=== PATIENT | female | born 1960 | race African-American/Black ===

== ENCOUNTER 2018-09-09 12:08 | Inpatient (IN) | payer OTHER ==
[~2018-09-09] VITALS: Ht 162.6 cm; Wt 94.3 kg
[2018-09-09 12:08] VITALS: BP 178/109
[~2018-09-09 12:08] MED LIST: ADVAIR HFA 1112 UNIT; ALEVE220 MG PO; CENTRUM SILVER1 EAC4 PO; COLACE 100 MG100 MG; GAVILAX17 GM; LEVAQUIN 500 M500 M6; MUCINEX TA600 MG/TA1; NICOTINE TRANSD21 M1; NOHOMEMEDICATIONS; NYSTATIN 1100000 U/M; PREDNISONE 20 M20 M1 PO; PROAIR HFA8.5 GM INH; SPIRIVA; SYMBICORT160 MCG/4. INH
[2018-09-09] MEDS ORDERED: CYCLOBENZAPRINE5 MG PO (12:19)
[2018-09-09] MEDS ORDERED: TRAMADOL HCL50 MG PO (12:20)
[2018-09-09] MEDS ORDERED: BREO ELLIPTA 11 EACH INH (12:20)
[2018-09-09 12:34] LABS: HEMATOCRIT 51.7 % (37.0-47.0); HEMOGLOBIN 17.6 gm/dL (12.0-15.0); MCH 33.2 pg (26.0-34.0); MCHC 34.1 g/dL (28.0-37.0); MCV 97.5 fL (80.0-100.0); PLATELET COUNT 198 thou/uL (150-400); RDW 12.9 % (10.5-14.5); WBC 10.3 thou/uL (4.0-11.0)
[2018-09-09 12:40] LABS: ANION GAP 8 mmol/L (7-16); BUN 15 mg/dL (7-18); CALCIUM 9.3 mg/dL (8.5-10.1); CHLORIDE 99 mmol/L (98-107); CO2 28 mmol/L (21-32); CREATININE 0.8 mg/dL (0.6-1.0); GLUCOSE 103 mg/dL (74-106); POTASSIUM 4.1 mmol/L (3.5-5.1); SODIUM 135 mmol/L (136-145)
[2018-09-09 12:49] LABS: ALBUMIN 3.9 g/dL (3.4-5.0); SGOT 20 U/L (15-37); SGPT 30 U/L (30-65); TOTAL BILIRUBIN 0.7 mg/dL (<0.1-1.0); TOTAL PROTEIN 8.2 g/dL (6.4-8.2); TROPONIN-I <0.06 ng/mL (<0.06)
[2018-09-09 12:59] VITALS: BP 151/96
[2018-09-09 13:00] LABS: ABSOLUTE NEUTROPHILS 7.8 thou/uL (1.4-8.2); ANISOCYTOSIS 1+; ATYPICAL LYMPHS 1 %; POLYCHROMASIA OCCASIONAL
--- NOTE | 2018-09-09 16:15 | NUR ---
PT ORIENTED TO ROOM AND UNIT. BED LOW AND LOCKED, SIDE RAILS UPX 3 CALL LIGHT IN REACH. WILL CONTINUE TO ASSESS.
[2018-09-09 16:36] VITALS: BP 97/49
[2018-09-09 16:50] VITALS: BP 101/69
--- NOTE | 2018-09-10 01:22 | EKG ---
[address] [place] [address] ELECTROCARDIOGRAM REPORT Name: JEFFERY FRANKLIN Room #: 358-P ADM IN M.R.#: [id number] ������������������ Admission: 09/09/18 ������������������ Attend Phys: Nitin Comer MD Discharge: ������������������ Date of : 58 Report #: [id number] ����������������������������������������������������������������� [id number] THIS REPORT FOR: //name// [facility] ED Test Date: 2018-09-09 Test Time: 12:20:48 Pat Name: JEFFERY FRANKLIN Department: Room: 358 Gender: F Slitting Machine Operator: DONAVAN : 1960 Requested By: Svetlana Reese Order Number: [id number] MD: Tyler Clifton Measurements Intervals [place] Rate: 110 P: 84 MT: 129 QRS: 75 QRSD: 81 T: 55 QT: 321 QTc: 435 Interpretive Statements Sinus tachycardia Biatrial enlargement Nonspecific ST-T wave changes Compared to ECG 08/31/2012 13:41:10 Electronically Signed On 09-10-2018 1:22:37 CDT by Tyler Clifton [email or web address] ��������������������������������������������� <ELECTRONICALLY SIGNED> ���������������������������������������� By: Tyler Clifton MD ��������������������������������������������� 09/10/18 0122 1220 1220 Tyler Clifton MD /JAMES
[2018-09-10 03:34] VITALS: BP 147/87
--- NOTE | 2018-09-10 07:28 | NUR ---
progress pt a/o x4 lungs coarse and tight on 2 to 4 liters of o2 via nc. up with sba. rt tx's and iv steroids and antibiotics given as ordered. pt voiding qs, accuchecks continue skin intact, tele reading sr continue poc.
[2018-09-10 07:55] VITALS: BP 113/101
[2018-09-10 08:38] LABS: MCH 33.1 pg (26.0-34.0); MCHC 33.8 g/dL (28.0-37.0); MCV 97.9 fL (80.0-100.0); RBC 4.7 mil/uL (4.20-5.00); RDW 13.1 % (10.5-14.5); WBC 8.6 thou/uL (4.0-11.0)
[2018-09-10 08:40] LABS: HEMOGLOBIN 15.5 gm/dL (12.0-15.0)
[2018-09-10 08:46] LABS: CALCIUM 8.9 mg/dL (8.5-10.1); CREATININE 0.9 mg/dL (0.6-1.0); POTASSIUM 4.2 mmol/L (3.5-5.1)
--- NOTE | 2018-09-10 10:52 | NUR ---
ASSUMED PT CARE AT 0700. ASSESSMENT COMPLETED AND IS CHARTED. PT B/P ELEVATED. STATES SHE TAKES LOSARTAN AT HOME. NEEDS TO BE ORDERED. WILL NOTIFY PHYSICIAN. PT REPORTS HEADACHE RATED 8/10. HYDROCODONE GIVEN. ALSO REQUESTS A STOOL SOFTENER TO PREVENT FUTURE PROBLEMS. NO OTHER ACUTE CONCERNS AT THIS TIME, WILL CONTINUE WITH CURRENT CARE.
--- NOTE | 2018-09-10 14:12 | NUR ---
ASSESSMENT: CM REVIEWED CHART AND MET WITH PATIENT AT THE BEDSIDE. PT IS ALERT AND ORIENTED X4. PT WAS ADMITTED WITH COPD EXACERBATION. PT REPORTS SHE LIVES IN A HOME BY HERSELF. PT REPORTS A COUPLE OF STEPS TO ENTER WITH NO HANDRAILS. PT REPORTS ONCE INSIDE SHE HAS ABOUT 14 STEPS WITH HANDRAILS TO THE UPPER LEVEL BUT REPORTS SHE MADE A BEDROOM ON THE FIRST FLOOR SO SHE DOES NOT HAVE TO GO UP THERE IF SHE DOES NOT WANT TO. PT REPORTS SHE AMBULATES INDEPENDENTLY BUT DOES HAVE A ROLLATER WALKER AT HOME IF NEEDED. PT STATES SHE HAS OXYGEN ARRANGED AT HOME FOR BEDTIME USE AND IS UNSURE OF THE PROVIDER. PT STATES SHE HAS NOT HAD HH IN THE PAST AND DOES NOT FEEL SHE WILL NEED IT. CM DISCUSSED ROLE. PT DOES NOT ANTICIPATE HAVING ANY NEEDS AT DISCHARGE. PTS DAUGHTER IS ALSO AT THE BEDSIDE AND SUPPORTIVE.
--- NOTE | 2018-09-10 15:11 | NUR ---
DISCONTINUED TELE. TRANSFERRED PT TO [facility] IN [facility]. REPORT CALLED TO CHILO.
[2018-09-10 15:37] VITALS: BP 113/70
--- NOTE | 2018-09-10 19:31 | NUR ---
PATIENT TRANSFERED FROM [facility], REPORT FROM JESUS/RN. PATIENT'S IV IN RIGHT HAND LEAKING UPON ARRIVAL TO THE UNIT, IV REMOVED, CALL IV TEAM FOR ASSISTANCE, DUE TO PATIENT BEING A HARD STICK, IV IN LEFT FOREARM 20G. PATIENT RECEIVING IV ANTIBIOTICS. PATIENT C/O HEADACHE, HYDROCODONE 1 TABLET GIVEN, WITH GOOD RELIEF. WILL CONTINUE TO MONITOR.
[2018-09-10 20:13] VITALS: BP 142/88
--- NOTE | 2018-09-11 06:07 | NUR ---
Pt A/OX4,pleasant.Up ad karolina without problems voiced. Pt did c/o a CASTELLANO medicated with [place] X1 with relief reported. Does have a congested non-productive cough,O2 on @ 3L/NC. VSS.Voiding without problems,stated she would like to have some prune juice w/breakfast to keep her bowels active while in the hospital.Resting quietly eyes closed at this time with no distress,call light within reach. Will continue to monitor pt.
[2018-09-11 08:16] VITALS: BP 132/78
--- NOTE | 2018-09-11 11:57 | NUR ---
PATIENT TRANSFERED FROM [facility], REPORT FROM JESUS/RN. PATIENT ALERT AND ORIENTED X 4. UP WITH ASSIST X 1 WITH WALKER, WBAT TOELRATED. PATIENT HAS DRESSING TO RIGHT KNEE, C/D/I, JESUS/RN REMOVED DRAIN PRIOR TO TRANSFER. PATIENT C/O PAIN 03/21. WORKED WITH PHYSICAL THERAPY THIS AM, WILL HAVE ANOTHER SESSION THIS AFTERNOON. PATIENT HAS LEFT HAND IV IN PLACE. WILL CONTINUE TO MONITOR.
--- NOTE | 2018-09-11 12:40 | NUR ---
SW reviewed chart and spoke with nursing and attending physician. Pt was [facility] to [facility] and is progressing towards goals for discharge. Pt remains on IV abx. Plan is for pt to discharge home when medically stable. OLESYA is following to assist as needed with discharge planning.
[2018-09-11 12:41] LABS: CALCIUM 8.7 mg/dL (8.5-10.1); CREATININE 0.7 mg/dL (0.6-1.0); POTASSIUM 4.2 mmol/L (3.5-5.1)
--- NOTE | 2018-09-11 19:37 | NUR ---
ASSUMED CARE OF PATIENT AT 0715, PATIENT C/O HEADACHE MOST OF THE DAY, PATIENT GIVEN HYDROCODONE 1 TABLETS X 3 THIS SHIFT, PATIENT C/O NOT GETTING ANY RELIEF FROM PAIN MEDS, THIS RN NOTIFIED DR VACA WHO WAS DESIGN TECHNOLOGY TEACHER, AND STATED HE WILL LOOK AT DR CARLIN NOTES AND SEE WHAT HE COULD GIVE HER, BUT NO ORDERS PUT IN BY THE END OF THE SHIFT. DR ARSHAD HERE THIS EVENING TO SEE PATIENT CONSULTED BY DR CARLIN. PATIENT RECEIVED CT SCAN OF CHEST. PATIENT FEELS WORSE TODAY, NON-PRODUCTIVE COUGH, MORE SOB. PATIENT HAS LEFT FOREARM IV IN PLACE, RECEIVING IV ANTIBIOTIC. WILL CONTINUE TO MONITOR.
--- NOTE | 2018-09-12 00:22 | NUR ---
Pt A/OX4,pleasant.VSS. C/o headache and ears feeling plugged up informed the pt it might be sinus pressure pt reports she has never had any sinus problems. in at beginning of shift to see pt, orders written for ECHO in AM and BNP/Troponin now and in am. Labs drawn and pt updated on the results and appreciated updates. Pt has increased SOA and more wheezing noted this evening,still has a non productive cough. O2 on at 3L/NC with water bubbler. Specimen for HINI also obtained and sent to lab. Pt encouraged to voice needs as needed,call light/personal items within reach. Will continue to monitor pt.
[2018-09-12 06:39] LABS: BASOPHILS 0.6 % (0.0-2.0); HEMATOCRIT 45.7 % (37.0-47.0); HEMOGLOBIN 15.4 gm/dL (12.0-15.0); LYMPHOCYTES 10.8 % (24.0-44.0); MCH 32.9 pg (26.0-34.0); MCHC 33.6 g/dL (28.0-37.0); MCV 97.9 fL (80.0-100.0); MONOCYTES 5.6 % (1.0-8.0); PLATELET COUNT 214 thou/uL (150-400); RBC 4.67 mil/uL (4.20-5.00); RDW 13.3 % (10.5-14.5); WBC 14.5 thou/uL (4.0-11.0)
[2018-09-12 07:51] VITALS: BP 123/69
--- NOTE | 2018-09-12 09:56 | 2DMMODE ---
[facility] [place] [address] 2 D/M-MODE ECHOCARDIOGRAM Name: JEFFERY FRANKLIN Room #: 220-P ADM IN M.R.#: [id number] ������������� Admission: 09/10/18 ������������� Attend Phys: Nitin Comer MD Discharge: ��� ������������� ��� Date of : 58 Date of Service: 09/12/18 0956 �� Report #: [id number] �������� ��������������������������������������������[id number] THIS REPORT FOR: //name// APPROVED REPORT Study performed: 09/12/2018 09:23:19 EXAM: Comprehensive 2D, Doppler, and color-flow Echocardiogram Patient Location: Echo lab Room #: 220 Status: routine BSA: 1.99 HR: 106 bpm BP: 123/69 mmHg Rhythm: NSR/TACHY Other Information Study Quality: Good/low parasternal window. Indications Short of breath. Right heart pressures. Hx: COPD, HLP. 2D Dimensions RVDd: 32.18 mm IVSd: 10.30 (7-11mm) LVDd: 39.63 mm PWd: 10.48 (7-11mm) LVDs: 22.78 (25-40mm) Aortic Root: 30.67 mm Volumes Left Atrial Volume (Systole) Single Plane 4CH: 40.96 mL Single Plane 2CH: 36.64 mL LA ESV Index: 20.00 mL/m2 Aortic Valve AoV Peak Kristian.: 1.85 m/s AO Peak Gr.: 13.65 mmHg LVOT Max P.98 mmHg LVOT Max V: 1.41 m/s Mitral Valve E/A Ratio: 0.7 MV Decel. Time: 194.80 ms MV E Max Kristian.: 0.65 m/s MV A Kristian.: 0.95 m/s [facility] [employer] [address] [place] [address] 2 D/M-MODE ECHOCARDIOGRAM Name: JEFFERY FRANKLIN Room #: 220-P [facility] IN ..#: [id number] ������������� Admission: 09/10/18 ������������� Attend Phys: Nitin Comer MD Discharge: ��� ������������� ��� Date of : 58 Date of Service: 09/12/18 0956 �� Report #: [id number] �������� ��������������������������������������������[id number] MV PHT: 56.49 ms IVRT: 53.06 ms Pulmonary Vein P Vein S: 0.94 m/s P Vein D: 0.72 m/s P Vein S/D Ratio: 1.31 Tricuspid Valve TR Peak Kristian.: 2.84 m/s RAP Estimate: 5.00 mmHg TR Peak Gr.: 32.24 mmHg PA Pressure: 37.00 mmHg Left Ventricle The left ventricle is normal size. There is normal LV segmental wall motion. There is normal left ventricular wall thickness. Left ventricular systolic function is hyperdynamic. LVEF is 65-70%. Mild diastolic dysfunction is present (impaired relaxation pattern). Right Ventricle The right ventricle is normal size. The right ventricular systolic function is normal. Atria The left atrium size is normal. The right atrium size is normal. Aortic Valve The aortic valve is not well visualized but appears grossly normal. No aortic regurgitation is present. There is no aortic valvular stenosis. Mitral Valve The mitral valve is normal in structure. Trace to mild mitral regurgitation. Tricuspid Valve The tricuspid valve is normal in structure. Trace tricuspid regurgitation. Estimated PAP is 35-40mmHg. Pulmonic Valve Pulmonic valve is not well visualized. Great Vessels The aortic root is normal in size. Ascending aorta is not well [facility] [address] [address] 2 D/M-MODE ECHOCARDIOGRAM Name: JEFFERY FRANKLIN Room #: 220-P [facility] IN M.R.#: [id number] ������������� Admission: 09/10/18 ������������� Attend Phys: Nitin Comer MD Discharge: ��� ������������� ��� Date of : 58 Date of Service: 09/12/18 0956 �� Report #: [id number] �������� ��������������������������������������������[id number] visualized. IVC is normal in size and collapses >50% with inspiration. Pericardium There is no pericardial effusion. <Conclusion> The left ventricle is normal size. LVEF is 65-70%. The right ventricle is normal size. The right ventricular systolic function is normal. The aortic valve is not well visualized but appears grossly normal. The mitral valve is normal in structure. Trace to mild mitral regurgitation. The tricuspid valve is normal in structure. Trace tricuspid regurgitation. Estimated PAP is 35-40mmHg. Pulmonic valve is not well visualized. There is no pericardial effusion. ��������������������������������������������� <ELECTRONICALLY SIGNED> ���������������������������������������� By: Tyler Clifton MD ��������������������������������������������� 09/12/18955 5 5 Tyler Clifton MD /INF
--- NOTE | 2018-09-12 10:29 | NUR ---
ASSUMED CARE AT 0700, A&O*4, SHIFT ASSESSMENT DONE, MEDS GIVEN, VSS. DENIES PAIN, NAUSEA. EXPIRATORY WHEEZES ON AUSCULTATION, GETS SOB WITH ACTIVITY, REMAINS ON 3L NC. WILL CONTINUE TO ASSESS AND ASSIST WITH ALDs NEEDED.
--- NOTE | 2018-09-12 14:16 | NUR ---
SW reviewed chart and spoke with nursing and attending physician. Pt is progressing towards goals for discharge. Discharge home is anticipated in 1-2 days. Pt to have echo today. Rest/exercise oximetry ordered to evaluate pt to determine if pt needs home O2 during the day. Plan is for pt to d/c home when medically stable. SW is following to assist as needed with discharge planning.
[2018-09-12 19:38] VITALS: BP 153/76
[2018-09-12 20:05] VITALS: BP 135/76
--- NOTE | 2018-09-13 05:07 | NUR ---
Assumed pt care at 1900. Pt A/OX4,up ad karolina in room.VSS. C/o headache/sinus pain medicated with [place] with relief reported. Pt overall states she's feeling much better after the Claritin-D and IV lasix given yesterday with less wheezing noted even though she still has GRAYSON. O2 on at 3L/NC with a humidifer on,has a non productive cough. IV on left arm infiltrated,re-inserted with 3 attempts on upper LFA,IV abts infusing at this time without any problems. Pt encouraged to call as needed, call light/personal items placed within reach. Will continue to monitor pt.
[2018-09-13 07:30] VITALS: BP 142/89
--- NOTE | 2018-09-13 12:29 | NUR ---
PATIENT CARE WAS ASSUMED AT 0715.PATIENT IS ALERT AND ORIENTED X4.PATIENT IS RESTING IN BED.PT HAS O2 ON 2.5L NC.PT IS ABLE AMBULATE ON HER OWN.IV IS INTACT AND SALINE LOCKED.PT HAS COMPLAINS OF A HEADACHE WILL ASK DOCTOR ABOUT MEDICATION.PT HAS CALL LIGHT, PHONE, AND PERSONAL BELONGINGS WITHIN REACH.
--- NOTE | 2018-09-13 12:54 | NUR ---
SW reviewed chart and spoke with nursing and attending physician. Pt is progressing towards goals for discharge. Rest/exercise oximetry completed yesterday. Pt does need 2L O2 continuously. SW met with pt at bedside to discuss discharge plan. Pt states she already has portable O2 tanks at home. Pt reports she was provided with a system to fill the portable tanks. Pt unable to recall name of current home O2 company. Pt has used [employer] in the past, but recently changed companies. Pt states that her family will provide transportation home and bring a portable tank with them. SW is following to assist as needed with discharge planning.
[2018-09-13 20:01] VITALS: BP 144/66
[2018-09-13 21:40] VITALS: BP 142/89
--- NOTE | 2018-09-14 04:24 | NUR ---
Assumed pt. care at 1900. Pt. remains A&Ox4; Swallows meds whole w/o difficulty. Remains cont. B&B. Ambulates independently w/ steady gait. Remains on lovenox theapy; no s/s of bleeding noted. 02 intact at 2.5LNC; no sob noted and color WNL. Continues on IVABT/COPD + PNA; no adverse reactions noted. Non - productive cough present. LAC SL noted; infused ABT/flushed w/o difficulty; + blood return present. Breathing txs, as ordered, w/o difficulty. Pt. denies pain or discomfort. No s/s of acute distress noted. Pt. asleep in bed w/ call light/desired belongings within reach. Po fluids encouraged. Will continue to monitor.
[2018-09-14 07:15] LABS: HEMATOCRIT 44.3 % (37.0-47.0); HEMOGLOBIN 14.8 gm/dL (12.0-15.0); MCH 32.7 pg (26.0-34.0); MCHC 33.5 g/dL (28.0-37.0); MCV 97.8 fL (80.0-100.0); RBC 4.53 mil/uL (4.20-5.00); WBC 9.5 thou/uL (4.0-11.0)
[2018-09-14 07:45] VITALS: BP 127/87
--- NOTE | 2018-09-14 15:47 | NUR ---
SW reviewed chart and spoke with nursing and attending physician. Pt is progressing towards goals for discharge. Weekend discharge anticipated. 5N consulted to evaluate pt for rehab. Recommendation made for pt to d/c home and have outpatient pulmonary rehab if needed. SW notified intake at [facility] to see if they are able to accept pt's insurance, should pt need services. SW is following to assist as needed with discharge planning.
--- NOTE | 2018-09-14 15:57 | NUR ---
PT. BECAME SOA DURING DIALYSIS SO IT WAS STOPPED & TRANSPORTATION [employer] WAS ACTIVATED. SEE FLOWSHEET.
--- NOTE | 2018-09-14 16:15 | NUR ---
PATIENT SEEN BY MAILE MUÑIZ NP WITH DR. LUCIANO FOR ACUTE REHAB CONSULT. PATIENT DOES NOT MEET CRITERIA FOR ACUTE REHAB ADMISSION. MAILE SUGGESTED OUT PATIENT PULMONARY REHAB. THANK YOU FOR THIS REFERRAL.
--- NOTE | 2018-09-14 17:47 | NUR ---
ASSUMED CARE OF PATIENT AT 0715, PATIENT DENIED PAIN AT START OF THE SHIFT. PATIENT C/O HEADACHE, HYDROCODONE 1 TABLET GIVEN, WITH GOOD RELIEF. PATIENT HAS LEFT FOREARM IV IN PLACE, RECEIVED IV ANTIBIOTIC. PATIENT HAS O2 AT 3 LITERS/NC IN PLACE, WITH SOA WITH ACTIVITY. PATIENT ALERT AND ORIENTED X 4. UP AD DION IN HER ROOM. WILL CONTINUE TO MONITOR.
[2018-09-14 20:35] VITALS: BP 115/58
[2018-09-14 21:14] VITALS: BP 130/84
--- NOTE | 2018-09-15 04:49 | NUR ---
PATIENT ALERT AND ORIENTED X4. UP ADLIB IN ROOM WITH SOME SOA NOTED. O2NC 3L. FAMILY AT BEDSIDE IN EARLY EVENING. RT TX PER ORDER. WET COUGH WITH NO SPUTUM NOTED. THIS NURSE CHANGED IV SITE TO LEFT HAND DUE TO LEAKAGE. MEDICATED FOR PAIN X1 AT TIME OF NOTE. RESTING QUIETLY AT TIME OF NOTE. WILL MONITOR.
--- NOTE | 2018-09-15 06:43 | NUR ---
THIS NURSE AGREES WITH ASSESSMENT AND NOTES FROM FRAMING MANAGER ON THIS PATIENT.
[2018-09-15 19:22] VITALS: BP 119/77
[2018-09-15 22:05] LABS: ADENOVIRUS Negative (Negative); INFLUENZA A Negative (Negative); INFLUENZA B Negative (Negative); METAPNEUMOVIRUS Negative (Negative); PARAINFLUENZA 1 Negative (Negative); PARAINFLUENZA 2 Negative (Negative); PARAINFLUENZA 3 Negative (Negative); RHINOVIRUS Negative (Negative); RSV A Negative (Negative); RSV B Negative (Negative)
--- NOTE | 2018-09-16 03:16 | NUR ---
PATIENT ALERT AND ORIENTED X4. FAMILY AT BEDSIDE IN EARLY EVENING. UP ADLIB WITH 02 LINE TO BATHROOM. SOME SOA NOTED WITH EXERTION. MEDICATED FOR HEADACHE PAIN X1 AT TIME OF THIS NOTE. 02 AT 3L. POSSIBLE DISCHARGE TODAY. RESTING QUIETLY, WILL MONITOR.
[2018-09-16 07:42] VITALS: BP 109/81
--- NOTE | 2018-09-16 18:07 | NUR ---
ASSUMED CARE OF PATIENT AT 0715, PATIENT ALERT AND ORIENTED X 4. PATIENT UP AD DION IN HER ROOM. PATIENT C/O NAUSEA AND CRAMPING THIS AM, ZOFRAN 4 MG IV GIVEN, WITH GOOD RELIEF. PATIENT STATED SHE VOMITTED LARGE AMT OF EMESIS, IN TRASH CAN, YELLOW IN COLOR, PATIENT STATES SHE FELT BETTER AFTER. PATIENT STATES SHE HAS HAD 10 SMALL LOOSE STOOLS, NO ABNORMAL SMELL REPORTED. THIS RN NOTIFIED DR BUNCH OF STOOLS AND NAUSEA/CRAMPING, RECEIVED ORDER TO START PROTONIX DAILY, PUT IN BY DR BUNCH, AND OBTAIN STOOL FOR C-DIFF IF ANY MORE LOOSE STOOLS. PATIENT REPORT NO MORE LOOSE STOOLS, COLACE RETURNED NOT NEEDED, NAUSEA/CRAMPING IMPROVED OF ALMOST THE END OF THE SHIFT. PATIENT C/O LOW BACK PAIN AND HEADACHE, HYDROCODONE 1 TABLET GIVEN. PATIENT HAS LEFT HAND IV IN PLACE, FLUSHED AT THE START OF THE SHIFT AND REMAINS PATENT. PATIENT HAS TOLERATED LUNCH AND DINNER. O2 AT 3 LITERS/NC. PATIENT AMBULATED WITH LUIS A/AUTOMOTIVE ENGINEERING TECHNICIAN THIS EVENING. PATIENT C/O SOB WITH ACTIVITY IS IMPROVING. WILL CONTINUE TO MONITOR.
[2018-09-16 20:00] VITALS: BP 152/85
[2018-09-16 20:02] VITALS: BP 121/98
--- NOTE | 2018-09-17 03:53 | NUR ---
PATIENTS CARE WERE ASSUMED AT SHIFT CHANGE. PATIENT WAS ASSESSED AND MEDS WERE PASSED. PATIENT DID ANNOUNCE THAT SHE IS GOING HOME TOMORROW. STATED SHE HAS BEEN HERE TO LONG. SHE STATED SHE IS DOING MUCH BETTER AND SHE AMBULATED IN THE [place]. HOURLY ROUNDING WAS DONE. PATIENT DID APPER TO BE SLEEPING AT ROUNDING. THE BED IS IN A LOW AND LOCKED POSITION
--- NOTE | 2018-09-17 09:29 | NUR ---
Nutrition: Admitted for PNA, COPD. Seen for LOS. Reports good appetite with 90% intake. UBW between 204-210 lbs, wt on 09/10 208 lbs. BG 299, no hx of DM. Could be due to prednisone meds. Pt had no nutrition related questions. Low nutrition risk.
[2018-09-17 11:14] VITALS: BP 98/67
--- NOTE | 2018-09-17 11:20 | NUR ---
ASSUMED PT CARE AT 0700. ASSESSMENT COMPLETED AND IS CHARTED. VSS. PT IS AWAKE,ALERT/ORIENTED X4. REPORTS BACK PAIN RATED 6/10. HYDROCODONE GIVEN. MOIST COUGH NOTED BUT NON-PRODUCTIVE. WHEEZES NOTED THROUGHOUT UPON AUSCULTATION. PT ON O2 AT 2.5 L PER NC, BASELINE IS 2L. NO IMMEDIATE CONCERNS AT THIS TIME. WILL CONTINUE WITH CURRENT POC.
--- NOTE | 2018-09-17 15:48 | NUR ---
OLESYA reviewed chart and spoke with nursing and attending physician. Pt is progressing towards goals for discharge. Discharge home is anticipated in 1-2 days. Plan is for pt to discharge home when medically stable. [facility] is able to provide services if needed. OLESYA left voice message for dustin Low with pt's insurance, [employer]. ( x [phone]). OLESYA is following to assist as needed with discharge planning.
--- NOTE | 2018-09-17 16:33 | NUR ---
PT DOING WELL THIS SHIFT. UP AND AROUND IN ROOM AND TOLERATING WELL. NO IMMEDIATE NEEDS OR CONCERNS. WILL CONITINUE WITH CURRENT CARE.
[2018-09-17 20:46] VITALS: BP 98/67
--- NOTE | 2018-09-18 04:13 | NUR ---
Assumed pt. care AT 1900. PT remains A&Ox4; swallows meds whole w/o difficulty. Remains cont. B&B. Ambulates independently w/ steady gait. Remains on lovenox therapy; no s/s of bleeding noted. Nicotine patch intact to R shoulder. 02 intact at 2.5LNC; no sob noted and color WNL. Remains on POABT/[place]; no adverse reactions noted. Dry; non - productive cough noted. L hand SL noted; flushed w/ NS w/o difficulty; no blood return noted. Last BM 09/17/18,per pt. Pt has no c/o pain or discomfort. No s/s of acute distress noted. Pt. asleep in bed w/ 02 intact and call light/desired belongings within reach. Po fluids encouraged. Will continue to monitor.
[2018-09-18 08:00] VITALS: BP 108/75
[2018-09-18 08:06] VITALS: BP 108/75
[2018-09-18] MEDS ORDERED: PREDNISONE 20 M20 M1 PO (12:21)
[2018-09-18] MEDS ORDERED: NEBULIZER MISCELL (12:21)
[2018-09-18] MEDS ORDERED: IPRAT-ALBUT 0.5-3 ML INH (12:21)
[2018-09-18] MEDS ORDERED: LEVAQUIN 500 M500 M5 PO (12:21)
[2018-09-18] MEDS ORDERED: COZAAR 50 MG TA50 M1 PO (12:21)
[2018-09-18 12:25] VITALS: BP 108/75
--- NOTE | 2018-09-18 12:31 | NUR ---
ASSUMED CARE OF PATIENT THIS MORNING. PATIENT IS A&OX4. SHE IS UP AD DION. SHE RECEIVED HYDROCODONE THIS MORNING FOR BACK PAIN, WITH PARTIAL RELIEF WHEN REASSESSED. SHE WEARS 2L OF OXYGEN. TOLERATED MORNING MEDS. PATIENT WILL BE DISCHARGED HOME THIS AFTERNOON WITH SELF CARE. SHE IS CURRENTLY SITTING IN CHAIR WITH CALL LIGHT WITHIN REACH. SHE CALLS OUT APPROPRIATELY FOR ANY NEEDED ASSISTANCE.
--- NOTE | 2018-09-18 13:14 | NUR ---
DISCHARGE NOTE: SW reviewed chart and spoke with nursing and attending physician. Pt is medically stable for discharge home today. Pt has home O2 in place. Pt's family to provide transportation home. No additional SW needs identified at this time, but is available to assist should needs arise.
--- NOTE | 2018-09-18 14:01 | NUR ---
PATIENT DISCHARGED HOME WITH HOME HEALTH. IV DC'D. DISCHARGE INSTRUCTIONS REVIEWED WITH PATIENT AND PATIENT SIGNED IN AGREEANCE. PATIENT SENT HOME WITH PRESCRIPTIONS WELL. [facility] PICKED PATIENT UP FROM UNIT TO TAKE TO [facility] FOR DEPARTURE.
== END 2018-09-18 14:04 | disposition home or self-care (01) | DRG 871 ==
LOC: ER 12:08 → 3W 13:49 → EROBS 13:49 → ER 13:49 → 3W 16:50 → EROBS 16:50 → 3W 09-10 14:53 → SICU 09-10 15:11 → ENTRNSPT 09-18 13:45 → EDTRNSPTSTS 09-18 13:55 → SICU 09-18 14:04
PROVIDERS: Pediatrics; Physician Assistant; ADMIT Hospitalist
DX: A41.9 Sepsis, unspecified organism (principal); J18.9 Pneumonia, unspecified organism; J96.21 Acute and chronic respiratory failure with hypoxia; J44.1 Chronic obstructive pulmonary disease with (acute) exacerbation; E78.5 Hyperlipidemia, unspecified; G43.909 Migraine, unspecified, not intractable, without status migrainosus; F12.90 Cannabis use, unspecified, uncomplicated; F17.210 Nicotine dependence, cigarettes, uncomplicated; R00.0 Tachycardia, unspecified; E66.9 Obesity, unspecified; Z71.6 Tobacco abuse counseling; Z90.710 Acquired absence of both cervix and uterus; Z82.49 Family history of ischemic heart disease and other diseases of the circulatory system; Z68.35 Body mass index [BMI] 35.0-35.9, adult; Z83.6 Family history of other diseases of the respiratory system; Z79.899 Other long term (current) drug therapy
CPT/HCPCS: 10879; 15002

== ENCOUNTER 2021-01-01 18:43 | Inpatient (IN) | payer OTHER ==
[~2021-01-01] VITALS: Ht 162.6 cm; Wt 101.2 kg
[~2021-01-01 18:43] MED LIST changes: +BREO ELLIPTA 11 EACH INH; +COZAAR 50 MG TA50 M1 PO; +CYCLOBENZAPRINE5 MG PO; +IPRAT-ALBUT 0.5-3 ML INH; +LEVAQUIN 500 M500 M5 PO; +NEBULIZER MISCELL; +TRAMADOL HCL50 MG PO
[2021-01-01 18:50] VITALS: BP 143/81
[2021-01-01 19:40] LABS: URINE BILIRUBIN NEGATIVE (Negative); URINE BLOOD TRACE (Negative); URINE CLARITY CLEAR; URINE COLOR YELLOW; URINE GLUCOSE-RANDOM* NEGATIVE (Negative); URINE KETONES NEGATIVE (Negative); URINE LEUKOCYTES-REFLEX NEGATIVE (Negative); URINE NITRITE-REFLEX NEGATIVE (Negative); URINE PROTEIN (DIPSTICK) TRACE (Negative); URINE SPECIFIC GRAVITY >= 1.030 (1.005-1.035); URINE UROBILINOGEN 0.2 E.U./dl (0.2-1.0)
[2021-01-01 19:42] LABS: ABSOLUTE NEUTROPHILS 7.2 thou/uL (1.4-8.2); BASOPHILS 0.5 % (0.0-2.0); EOSINOPHILS 1.3 % (0.0-3.0); HEMATOCRIT 44.8 % (37.0-47.0); HEMOGLOBIN 15.5 gm/dL (12.0-15.0); LYMPHOCYTES 14.4 % (24.0-44.0); MCH 33.2 pg (26.0-34.0); MCHC 34.5 g/dL (28.0-37.0); MCV 96.2 fL (80.0-100.0); MONOCYTES 10.7 % (1.0-8.0); PLATELET COUNT 222 thou/uL (150-400); POLYS 73.1 % (36.0-66.0); RBC 4.65 mil/uL (4.20-5.00); RDW 12.8 % (10.5-14.5); WBC 9.9 thou/uL (4.0-11.0)
[2021-01-01 21:28] LABS: ALBUMIN 3.4 g/dL (3.4-5.0); ANION GAP 8 mmol/L (7-16); BUN 8 mg/dL (7-18); CALCIUM 7.9 mg/dL (8.5-10.1); CHLORIDE 106 mmol/L (98-107); CO2 29 mmol/L (21-32); CREATININE 0.9 mg/dL (0.6-1.0); GLUCOSE 99 mg/dL (74-106); POTASSIUM 3.4 mmol/L (3.5-5.1); SGOT 28 U/L (15-37); SGPT 40 U/L (14-59); SODIUM 143 mmol/L (136-145); TOTAL BILIRUBIN 0.8 mg/dL (0.2-1.0); TOTAL PROTEIN 6.6 g/dL (6.4-8.2); TROPONIN-I <0.06 ng/mL (<0.06)
[2021-01-02] VITALS (7 sets, daily range): BP systolic 101–135; BP diastolic 57–116
[2021-01-02] MEDS ORDERED: LIPITOR 40 MG T40 M1 PO (03:06)
[2021-01-02] MEDS ORDERED: HYDROCHLOROTHIA25 M1 PO (03:06)
[2021-01-02] MEDS ORDERED: DULOXETINE HCL30 MG PO (03:07)
[2021-01-02 07:08] LABS: CALCIUM 7.7 mg/dL (8.5-10.1); CREATININE 0.8 mg/dL (0.6-1.0); POTASSIUM 3.8 mmol/L (3.5-5.1)
[2021-01-02 07:12] LABS: CHOLESTEROL 162 mg/dL (<200); HDL CHOLESTEROL 53 mg/dL (>40); LDL CHOLESTEROL 99 mg/dL (<100); TC:HDL 3.1 Ratio (Not establshd); TRIGLYCERIDE 52 mg/dL (<150); VLDL 10 mg/dL (<40)
--- NOTE | 2021-01-02 10:50 | EKG ---
[address] [place] [address] ELECTROCARDIOGRAM REPORT Name: JEFFERY FRANKLIN Room #: 170-10 ADM IN M.R.#: [id number] Admission: 01/02/21 Attend Phys: Dima Aragon MD Discharge: Date of : 58 Report #: [id number] [facility] ED Test Date: 2021-01-01 Test Time: 20:35:30 Pat Name: JEFFERY FRANKLIN Department: Room: 170 Gender: F Swimming Pool Maintenance: devendra jones : 1960 Requested By: Freddie Marquez Order Number: [id number] MD: Javier Marrero Measurements Intervals [place] Rate: 92 P: 70 CT: 157 QRS: 73 QRSD: 98 T: 49 QT: 357 QTc: 442 Interpretive Statements Sinus rhythm Nonspecific T wave abnormality Compared to ECG 09/09/2018 12:20:48 Sinus tachycardia no longer present T wave abnormality is now present Electronically Signed On 01-02-2021 10:49:56 CDT by Javier Marrero [email or web address] <ELECTRONICALLY SIGNED> By: Javier Marrero MD, [facility] 01/02/21 1049 34 34 Javier Marrero MD, [facility] /EPI
--- NOTE | 2021-01-02 18:45 | NUR ---
PT ARRIVED VIA BED FROM ER. PT ALERT AND ORIENTED X4. PT STATED SHE STARTED FEELING ILL WEDS. INCREASES SOA, PT WAS DOING RT TREATMENTS AT HOME AND INHAILER. WENT TO URGENT CARE YESTERDAY AROUND 1740 AND HE STATED SHE NEEDED TO GO TO HOSPITAL. PT STATED SHE WAS HAVING MORE COUGHING AND NOT SHE IS FEELING BETTER, STILL HAS A COUGH, DRY NOT PRODUCING AT THIS TIME. PT HAS OXYGEN ON 2L NC. PT HAS OXYGEN AT HOME AND USES 3-4 LITERS AT HOME WITH SHOWER. PT TELE APPLIED AND SINUS RHYTHM AT 96. PT WAS ABLE TO WALK FROM BED IN GARCIA TO BED IN ROOM WITHOUT SOA. PT STATED SHE HAD GRANDKIDS OVER RECENTLY AND NOW THEY ARE SICK.
--- NOTE | 2021-01-03 01:32 | NUR ---
NEW PATIENT ADMITTTED FOR COPD EXACEBATION. PATIENT AOX4 MAKES NEEDS KNOWN. PATIENT CONTINENT OF BOTH BOWELS AND BLADDER.PATIENT SOA WITH ACTIVITIES. PATIENT ON 2L OF OXYGEN. PATIENT C/O LOWER BACK PAIN CALLED SOCIAL [employer] PSYCHI[facility] NEW ORDER OF TRAMADOL, TRAMADOL WAS NOT EFFECTIVED CALLED FOR PRN OXYCODONE.PAIN CONTROLLED THIS SHIFT. FALL PRECAUTION IN PLACE.PATIENT IN BED ASLEEP AT THIS TIME BREATHING REGULAR AND UNLABOURED.
[2021-01-03 05:36] LABS: GLYCOHEMOGLOBIN (HGB A1C) 6.2 % (4.8-5.6)
[2021-01-03 07:53] VITALS: BP 126/55
--- NOTE | 2021-01-03 12:37 | NUR ---
ASSUMED PT CARE THIS AM. PT A&OX4, ABLE TO MAKE NEEDS KNOWN. PATIENT HAS A COUGH, ABLE TO PRODUCE SOME SPUTUM. IV REMAINS PATENT, MEDICATIONS INFUSED WITHOUT ISSUE. PATIENT REPORTING NO PAIN, NUMBNESS, OR TINGLING. PATIENT IS ON 2 LITERS OXYGEN VIA NC. CALL LIGHT WITHIN REACH.
[2021-01-03 16:16] VITALS: BP 116/79
[2021-01-03 21:29] VITALS: BP 112/74
--- NOTE | 2021-01-04 03:18 | NUR ---
patient aox4 makes needs known. patient is on 2L of oxygen no soa or distress noted. pain controlled this shift. patient ambulates in the bathroom with steady gaits. patient is up at karolina. patient is calm and cooperative with care and meds. patient in bed asleep at this time breathing regular and unlaboured.
[2021-01-04 05:46] LABS: HEMATOCRIT 41.5 % (37.0-47.0); HEMOGLOBIN 13.9 gm/dL (12.0-15.0); LYMPHOCYTES 7.7 % (24.0-44.0); MCH 32.5 pg (26.0-34.0); MCHC 33.4 g/dL (28.0-37.0); MCV 97.4 fL (80.0-100.0); MONOCYTES 3.5 % (1.0-8.0); PLATELET COUNT 227 thou/uL (150-400); POLYS 88.8 % (36.0-66.0); RBC 4.27 mil/uL (4.20-5.00); RDW 13.4 % (10.5-14.5); WBC 15.7 thou/uL (4.0-11.0)
[2021-01-04 07:19] VITALS: BP 125/81; BP 178/82
--- NOTE | 2021-01-04 16:11 | NUR ---
ASSUMED CARE OF PT AT 0700 THIS MORNING. PT HAS COPD WITH EXACERBATION. PT IS A/OX4, LUNGS ARE DIMINISHED IN LOWER LOBES WITH UPPER WHEEZES WITH LIGHT PRODUCTIVE COUGH. RT HAS BEEN SCHEDULED TX AND BREATHING HAS BEEN BETTER THROUGHOUT THE DAY. ASSESSMENTS CHARTED AND OTHERWISE UNREMARKABLE. CALL LIGHT AND OTHER NEEDS ARE WITHIN REACH. PT IS UP AB DION AND INDEP. IV IN THE RT AC WITH ABx. MEDS AND TX GIVEN NEEDED AND SCHEDULED. CONTINUEING TO MONITOR AND NOTE ANY CHANGES.
[2021-01-04 16:39] VITALS: BP 142/91; BP 184/92
[2021-01-04 19:11] VITALS: BP 134/79
--- NOTE | 2021-01-05 05:52 | NUR ---
NO SIGNIFICANT EVENTS DURING THE NIGHT. C/O BACK PAIN. PRN PAIN MEDICATION GIVEN. PT IS UP AD DION TO THE BTR. STEADY GAIT. SPO2 >92% ON 4L NC. MILDLY SOA W/ EXERTION. PROGRESSING TOWARD POC GOALS. WILL GIVE REPORT TO ONCOMING NURSE.
[2021-01-05 17:55] VITALS: BP 130/77
--- NOTE | 2021-01-05 18:02 | NUR ---
ASSUMED PT CARE THIS AM. PT IS ALERT & ORIENTED X4. PT HAS IV SITE ON R FA SALINE LOCKED. PT IS UP AD DION. PT HAS BREATHING TREATMENT. PT IS ON 4L NC O2. PT IS ACCUCHECK ACHS. PT C/O OF PAIN AND GIVEN PAIN MEDICATION PER PT REQUEST. PT TOLERATED MEDICATION AND DIET WELL. NO C/O OF NAUSEA AND VOMITING. PT ON THE BED, BED ON THE LOWEST POSITION, SIDE RAILS UP, CALL LIGHT WITHIN REACH. WILL CONTINUE TO MONITOR PT. FOLLOW POC.
[2021-01-05 19:33] VITALS: BP 124/81
--- NOTE | 2021-01-06 07:34 | NUR ---
PATIENT GETS SOA OF AIR WITH ACTIVITIES. PATIENT IS ON 3L OF OXYGEN. PAIN CONTROLLED THIS SHIFT.PATIENT IS UP AT DION. PATIENT IN BED ASLEEP AT THIS TIME BREATHING REGULAR AND UNLABOURED.
--- NOTE | 2021-01-06 09:34 | NUR ---
PT ADMITTED RELATED TO COPD EXACEBATION. CM REVIEWED CHART AND SPOKE WITH CARE TEAM. CM MET WITH PT AT BEDSIDE THIS DAY. PT APPEARED TO BE A&O X4. CM ROLE INTRODUCED. PT INDICATED SHE LIVES IN A HOUSE ALONE WITH HER DOGS. PT INDICATED SHE HAS 1 STEP TO ENTER AND A FULL FLIGHT TO SECOND STORY. PT HAS ALL NEEDS ON 1 LEVEL IN THE HOME. PT INDICATED SHE HAS A FWW, 4WW, AND O2 THROUGH [facility]. PT INDICATED SHE IS INTERESTED IN INFO ON NEW PCP. CM TO PROVIDE. PT INDICATED SHE PLANS TO RETURN HOME ONCE MEDICALLY STABLE. SHE INDICATED THAT HER SON AND DTR ARE ATTENTIVE AND ASSIST HER NEEDED. CM TO FOLLOW INDICATED WITH DC PLANNING.
--- NOTE | 2021-01-06 16:19 | NUR ---
CARE TEAM INDICATED PT PT IS PROGRESSING SLOWLY TOWARD DISCHARGE. THEY INDIATED THAT PT MAY BE MEDICALLY STABLE TO DC HOME TOMORROW. ANTICIPATE THAT PT WILL BE ABLE TO DC HOME TO SELF CARE.
--- NOTE | 2021-01-06 17:14 | NUR ---
ASSUMED CARE OF PATIENT AT SHIFT CHANGE. ASSESSMENT CHARTED. MEDICATIONS ADMINISTERED PER EMAR W NO ISSUES. VSS. PATIENT IS A&OX4 AND MAKES NEEDS KNOWN. PATIENT IS UP INDEPENDENTLY WITH NO ISSUES. ABX INFUSED W NO ISSUES. PATIENT DOES C/O PAIN; CHRONIC BACK PAIN RELIEVED BY PRN PO ANALGESICS. PATIENT STATES COUGHING THIS DAY HAS BEEN REDUCED SINCE SHE STARTED HER NEW BREATHING TX. PATIENT ON IV STEROIDS EVIDENT IN ELEVATED BLOOD SUGARS. PATIENT STATES FEELING BETTER THIS SHIFT. REMAINS ON 3L NC WITH NO ISSUES. PATIENT DENIES FURTHER NEEDS. FREQUENT CHECKS BEING DONE ON PATIENT. CONTINUING FREQUENT MONITORING, AWAITING ANY NEW ORDERS AND WILL CONTINUE TO FOLLOW PLAN OF CARE
[2021-01-06 20:10] VITALS: BP 131/78
[2021-01-06 21:05] LABS: HEMATOCRIT 45.3 % (37.0-47.0); HEMOGLOBIN 15.6 gm/dL (12.0-15.0); MCH 33.1 pg (26.0-34.0); MCHC 34.5 g/dL (28.0-37.0); MCV 95.9 fL (80.0-100.0); RBC 4.72 mil/uL (4.20-5.00); RDW 12.8 % (10.5-14.5)
[2021-01-06 21:15] LABS: CALCIUM 8.9 mg/dL (8.5-10.1); CREATININE 1.1 mg/dL (0.6-1.0); POTASSIUM 3.7 mmol/L (3.5-5.1)
--- NOTE | 2021-01-07 05:35 | NUR ---
Assumed pt care at 1900. A/OX4, VSS. C/o SOA with exertion on 3L/NC.Has a congested cough. C/o lower back pain,medicated per EMAR with relief reported. Pt is up ad karolina,encouraged to call for help as needed. Resting quietly w/o any distress noted,will continue to monitor pt.
[2021-01-07 08:44] VITALS: BP 130/89
[2021-01-07] MEDS ORDERED: IPRAT-ALBUT 0.5-3 ML INH (14:06)
[2021-01-07] MEDS ORDERED: GUAIFENESIN DM S5 ML PO (14:07)
[2021-01-07] MEDS ORDERED: PREDNISONE 10 M10 M1 PO (14:08)
[2021-01-07] MEDS ORDERED: CEFDINIR300 MG PO (14:09)
[2021-01-07 14:39] VITALS: BP 130/89
--- NOTE | 2021-01-07 14:43 | NUR ---
Nurse went over discharge teaching with patient while her daughter was on the phone listening. Right forearm IV removed pressure and gauze appiled. O2 on 3L. Transported to car via wheelchair. Patient's son will take her home.
[2021-01-07 14:58] VITALS: BP 130/89
[2021-01-07 15:04] VITALS: BP 130/89
== END 2021-01-07 16:45 | disposition home or self-care (01) | DRG 871 ==
LOC: ER 18:43 → EROBS 01-02 00:06 → 4W 01-02 00:06 → EROBS 01-02 10:30 → 4W 01-02 18:14
PROVIDERS: Emergency Medicine; Hospitalist; Nurse Practitioner Family; ADMIT Internal Medicine; ATTEND Internal Medicine
DX: A41.9 Sepsis, unspecified organism (principal); J18.9 Pneumonia, unspecified organism; J96.21 Acute and chronic respiratory failure with hypoxia; E78.5 Hyperlipidemia, unspecified; I10 Essential (primary) hypertension; G43.909 Migraine, unspecified, not intractable, without status migrainosus; G89.29 Other chronic pain; M54.9 Dorsalgia, unspecified; F17.210 Nicotine dependence, cigarettes, uncomplicated; J06.9 Acute upper respiratory infection, unspecified; J43.9 Emphysema, unspecified; Z20.822 Contact with and (suspected) exposure to COVID-19; E66.9 Obesity, unspecified; Z68.38 Body mass index [BMI] 38.0-38.9, adult; Z88.8 Allergy status to other drugs, medicaments and biological substances; Z90.710 Acquired absence of both cervix and uterus; Z71.6 Tobacco abuse counseling; Z99.81 Dependence on supplemental oxygen
CPT/HCPCS: 10045

== ENCOUNTER → 2021-05-21 | Outpatient (CLI) | payer OTHER ==
[~2021-05-21] MED LIST changes: +CEFDINIR300 MG PO; +DULOXETINE HCL30 MG PO; +GUAIFENESIN DM S5 ML PO; +HYDROCHLOROTHIA25 M1 PO; +LIPITOR 40 MG T40 M1 PO; +PREDNISONE 10 M10 M1 PO
== END ==
LOC: MRI 04-28 11:06 → CAT 13:29
PROVIDERS: ATTEND Specialist
DX: M47.815 Spondylosis without myelopathy or radiculopathy, thoracolumbar region (principal); M47.816 Spondylosis without myelopathy or radiculopathy, lumbar region; M47.817 Spondylosis without myelopathy or radiculopathy, lumbosacral region; M43.16 Spondylolisthesis, lumbar region

== ENCOUNTER → 2021-05-26 | Outpatient (CLI) | payer OTHER ==
[~2021-05-26] MED LIST changes: +ATORVASTATIN CA20 MG PO; +OXYCODONE HCL10 MG PO; +VITAMIN C1000 MG PO; +VITAMIN D325 MC2 PO; +ZINC50 M2 PO
[2021-05-26 13:28] LABS: HEMATOCRIT 46.9 % (37.0-47.0); HEMOGLOBIN 15.7 gm/dL (12.0-15.0); MCH 32.7 pg (26.0-34.0); MCHC 33.5 g/dL (28.0-37.0); MCV 97.5 fL (80.0-100.0); RBC 4.81 mil/uL (4.20-5.00); RDW 12.5 % (10.5-14.5); WBC 7.7 thou/uL (4.0-11.0)
[2021-05-26 13:42] LABS: APTT 28.2 Seconds (24.5-32.8); CALCIUM 9.5 mg/dL (8.5-10.1); CREATININE 0.9 mg/dL (0.6-1.0); INR 1.01; POTASSIUM 3.4 mmol/L (3.5-5.1); TOTAL BILIRUBIN 0.8 mg/dL (0.2-1.0); TOTAL PROTEIN 7.5 g/dL (6.4-8.2)
[2021-05-26 13:44] LABS: URINE BILIRUBIN NEGATIVE (Negative); URINE BLOOD NEGATIVE (Negative); URINE CLARITY CLEAR; URINE COLOR YELLOW; URINE GLUCOSE-RANDOM* NEGATIVE (Negative); URINE KETONES NEGATIVE (Negative); URINE LEUKOCYTES-REFLEX NEGATIVE (Negative); URINE NITRITE-REFLEX NEGATIVE (Negative); URINE PROTEIN (DIPSTICK) NEGATIVE (Negative); URINE SPECIFIC GRAVITY 1.015 (1.005-1.035); URINE UROBILINOGEN 0.2 E.U./dl (0.2-1.0)
== END ==
LOC: PAC 10:13
PROVIDERS: Student in an Organized Health Care Education/Training Program; ATTEND Specialist
DX: Z01.812 Encounter for preprocedural laboratory examination (principal); M43.16 Spondylolisthesis, lumbar region; Z20.822 Contact with and (suspected) exposure to COVID-19

== ENCOUNTER 2021-05-31 06:27 | Inpatient (IN) | payer OTHER ==
[2021-05-31] VITALS (9 sets, daily range): BP systolic 98–143; BP diastolic 56–80
[~2021-05-31] VITALS: Ht 160 cm; Wt 105.6 kg
--- NOTE | 2021-05-31 14:22 | NUR ---
ADMITTED TO 4S AFTER L4-5 FUSION BY . A/O X 4. 2 L O2 VIA NASAL CANNULA, USES 2 L @ HOME WELL. BEDREST. MORPHINE FIRER GLOST KILN PUMP. RIGHT HAND 20 G IV WITH LR INFUSING @ 100 MLS/HR. DEVON DRAIN TO BACK. AQUACEL DRESSING TO HER BACK. TEDS/SCDS. DAUGHTER AT BEDSIDE. PAIN 7/10 SHE STATES SHE FORGETS TO PUXH FIRER GLOST KILN BUTTON.
--- NOTE | 2021-06-01 04:57 | NUR ---
PT IS A/O X4 AND IS CURRENLTY ON BEDREST FOLLOWING SX. MEDICATION GIVEN PER AUG. MACHINE MILKER PUMP IN PLACE. PT CALLS OUT APPROPRIATELY FOR ASSISTANCE. FALL PRECAUTIONS IN PLACE, CALL LIGHT IS WITHIN REACH.
--- NOTE | 2021-06-01 09:00 | NUR ---
61 year old female, a & o x 4, pleasant and able to make her needs know. Back surgery pod # 1. She lives at home alone, independent when feeling well. Has few steps at home. has a cane, cpap and home oxygen from [facility]. manage own medication and drives vehicle. Plans on staying at her daughters home for a while for recovery. Also says that she was told she will be here for 3-6 days then dc per celecstene. No anticipated needs, will cont. following as needed for dc needs.
[2021-06-01 09:07] LABS: ABSOLUTE NEUTROPHILS 10.5 thou/uL (1.4-8.2); BASOPHILS 0.7 % (0.0-2.0); HEMATOCRIT 39.5 % (37.0-47.0); HEMOGLOBIN 12.9 gm/dL (12.0-15.0); MCH 32.1 pg (26.0-34.0); MCHC 32.6 g/dL (28.0-37.0); MCV 98.4 fL (80.0-100.0); MONOCYTES 7.9 % (1.0-8.0); PLATELET COUNT 226 thou/uL (150-400); POLYS 78.4 % (36.0-66.0); RBC 4.02 mil/uL (4.20-5.00); RDW 12.6 % (10.5-14.5); WBC 13.5 thou/uL (4.0-11.0)
[2021-06-01 09:22] LABS: CALCIUM 8.1 mg/dL (8.5-10.1); CREATININE 0.8 mg/dL (0.6-1.0); MAGNESIUM 1.9 mg/dL (1.8-2.4); POTASSIUM 3.9 mmol/L (3.5-5.1); TOTAL BILIRUBIN 0.5 mg/dL (0.2-1.0); TOTAL PROTEIN 6.4 g/dL (6.4-8.2)
[2021-06-01 14:32] LABS: FOLIC ACID 5.2 ng/mL (8.6-58.9)
[2021-06-01 16:53] VITALS: BP 97/63
[2021-06-01 20:11] VITALS: BP 115/44
--- NOTE | 2021-06-02 03:07 | NUR ---
PT IS A/O X4 AND IS UP WITH ASSISTANCE USING WALKER AND GB. VSS AFEBRILE. C/O BACK PAIN. PRN PAIN MEDICATION IN PLACE. 2LITERS O2 NC IN PLACE. CURRENTLY ON CPAP AT [facility]. HUBER IN PLACE DRAINING APPROPRIATELY. NO BM THIS SHIFT. FALL PRECUATIONS IN PLACE, CALL LIGHT IS WITHIN REACH. PT IS PLEASANT AND COOPERATIVE. CALLS OUT APPROPRIATELY FOR ASSISTANCE. IV MAINTANCE FLUID INFUSING AT PRESCRIBED RATE. IV INFILTRATED AND REMOVED. REPLACED TO LEFT FA.
[2021-06-02 05:12] LABS: ABSOLUTE NEUTROPHILS 7.1 thou/uL (1.4-8.2); BASOPHILS 0.4 % (0.0-2.0); EOSINOPHILS 0.4 % (0.0-3.0); HEMATOCRIT 36.3 % (37.0-47.0); HEMOGLOBIN 11.9 gm/dL (12.0-15.0); LYMPHOCYTES 32.3 % (24.0-44.0); MCH 32.3 pg (26.0-34.0); MCHC 32.8 g/dL (28.0-37.0); MCV 98.5 fL (80.0-100.0); MONOCYTES 7.9 % (1.0-8.0); PLATELET COUNT 205 thou/uL (150-400); RBC 3.68 mil/uL (4.20-5.00); RDW 12.6 % (10.5-14.5); WBC 12.1 thou/uL (4.0-11.0)
[2021-06-02 05:36] LABS: CALCIUM 7.8 mg/dL (8.5-10.1); CREATININE 0.8 mg/dL (0.6-1.0); MAGNESIUM 2.1 mg/dL (1.8-2.4); POTASSIUM 3.7 mmol/L (3.5-5.1)
[2021-06-02 07:00] VITALS: BP 98/61
[2021-06-02 17:49] VITALS: BP 98/61
--- NOTE | 2021-06-02 18:49 | NUR ---
Resummed pt care this am from overnight shift. Client was in room sitting on bed at this time. Client presented alert and oriented 4x, and was in a pleasant mood, though presented with pain. Client was given all medications and tolerated them well. Client expressed increased pain, and was given another oxycodone later in the day. No pain relief provided, so Dr. Comer was paged. 1 mg IV Push hydromorphone q4 prn was ordered along with orders to keep client on prn oxycodone. This was given and resulted in significant pain relief for client. Initially, client refused to get up with pt, but was able to walk and stand after first dose of hydromorphone given. Client encouraged to stand up at least one more time during this shift. Mcdonald catheter still in place due to client still experiencing pain and being unable to move ab karolina to restroom. Client currently has right joint drain still in place. IV in left forearm removed at 1830 pm as IV had gotten infilitrated after second dose of hydromorphone given. Information passed along to senior hardware engineer nuse. Client is currently resting in bed. Partial pain relief 2/ currently. Client has no further concerns at this time.
[2021-06-02 20:24] VITALS: BP 104/63
--- NOTE | 2021-06-03 03:38 | NUR ---
PROGRESS PT A/O X4. NOT OOB THIS SHIFT. PEDAL PULSES POSITIVE REPORTS SOME INTERMITTENT NUMBNESS TO BILATERAL LEGS THAT DISSIPATES WITH TOUCH AND REPOSITIONING. DRESSING TO BACK INTACT. VSS AFEBRILE PLAN IS TO INCREASE ACTIVITY PAIN CONTROL AND HOME WHEN MEDICALLY STABLE.
[2021-06-03 07:59] VITALS: BP 112/65
[2021-06-03 09:10] VITALS: BP 112/65
--- NOTE | 2021-06-03 16:22 | NUR ---
When medically stable to dc, going to her daughter home. No needs at dc.
[2021-06-03 16:39] VITALS: BP 102/62
--- NOTE | 2021-06-03 18:33 | NUR ---
pt refused mag citrate; pt educated on the cons of not taking medication and what could happen
[2021-06-03 20:36] VITALS: BP 109/65
--- NOTE | 2021-06-04 04:25 | NUR ---
RECEIVED CARE OF THIS PATIENT AT 1900. PATIENT ALERT AND ORIENTED X4. PATIENT REFUSED TO GET UP D/T BACK PAIN. MED GIVEN. BECAUSE PATIENT WAS UNABLE TO GET A PURWICK WAS APPLIED FOR URINATION. DRESSING ON BACK D/I. SLEPT OFF AND ON DURING NIGHT.
[2021-06-04 08:05] VITALS: BP 135/82
[2021-06-04] MEDS ORDERED: FOLIC ACID1 MG PO (11:34)
[2021-06-04] MEDS ORDERED: MIRALAX119 GM PO (11:34)
[2021-06-04] MEDS ORDERED: VITAMIN B-121000 MC2 SUBLING (11:34)
[2021-06-04] MEDS ORDERED: COLACE100 MG PO (11:34)
[2021-06-04 11:42] VITALS: BP 135/82
--- NOTE | 2021-06-04 12:55 | NUR ---
ASSUMED CARE OF PT AT 0700 THIS MORNING. PT HAS BEEN IN PAIN IN THE LOWER BACK AND HAS NOT HAD LONG LASTING COMFORT. PT IS A/OX4. ASSESSMENTS NOTED IN CHART. FALL PRECAUTIONS ARE IN PLACE. CALL LIGHT AND OTHER NEEDS ARE IN REACH. MEDS AND TX GIVEN NEEDED AND SCHEDULED. WILL CONTINUE TO MONITOR AND NOTE ANY CHANGES. BEAU WILLIS HAD PLACED DISCHARGE ORDERS FOR PT TO GO HOME. PT STATED SHE IS STILL IN PAIN AND I HAD OT EVAL AND SHE AGREES THAT PT SHOULD NOT BE DISCHARGED TODAY. PAGING BEAU TO RELAY THIS INFORMATION.
[2021-06-04 15:31] VITALS: BP 129/86
[2021-06-04 21:25] VITALS: BP 118/77
--- NOTE | 2021-06-05 06:02 | NUR ---
RECEIVED CARE OF THIS PATIENT AT 1900. PATIENT ALERT AND ORIENTED X4. UP TO BSC WITH SBA. C/O PAIN, MED GIVEN. DRESSING ON BACK INTACT. SLEPT MOST OF NIGHT.
[2021-06-05 08:03] VITALS: BP 98/60
[2021-06-05] MEDS ORDERED: MIRALAX17 GM PO (11:25)
[2021-06-05] MEDS ORDERED: BACLOFEN 10MG T10 MG PO (11:25)
[2021-06-05] MEDS ORDERED: COZAAR 50 MG TA50 M1 PO (11:25)
[2021-06-05 17:05] VITALS: BP 125/69
--- NOTE | 2021-06-05 18:47 | NUR ---
PT ASSESSED AT START OF SHIFT. UP IN CHAIR MOST OF SHIFT BUT DID REST FOR FEW HOURS IN BED. LUMBAR DSNG SATURATED W/ SEROSANGUINOUS DRAINAGE. BEAU SOLAR FABRICATION TECHNICIAN HERE ON ROUNDS AND TALKED W/ SURGEON PA AND UPDATED ON CONDITION. PAIN MUCH BETTER AND WELL CONTROLLED. DSNG CHANGED TO AQUACEL AND HAD 2 CM DRAINAGE. PT AMBULATED W/ WALKER AND O2 W/ STANDBY IN THE HALLS 2 LAPS AND DID WELL.
[2021-06-05 20:24] VITALS: BP 109/64
[2021-06-06 00:21] VITALS: BP 109/64
--- NOTE | 2021-06-06 04:18 | NUR ---
PT BEEN RESTING IN NO ACUTE DISTRESS.A/OX4.VSS.DRESSING TO BACK CDI.PAIN MEDS GIVEN PER THE PT'S REQUEST.UP TO BSC WITH SBA.POSSIBLE DISCHARGE TO HOME TODAY.
[2021-06-06 07:00] VITALS: BP 133/70
[2021-06-06 08:00] LABS: BASOPHILS 0.6 % (0.0-2.0); RDW 12.6 % (10.5-14.5)
[2021-06-06 08:02] LABS: ABSOLUTE NEUTROPHILS 8.5 thou/uL (1.4-8.2); EOSINOPHILS 4.9 % (0.0-3.0); HEMATOCRIT 42.5 % (37.0-47.0); HEMOGLOBIN 14.1 gm/dL (12.0-15.0); LYMPHOCYTES 21.2 % (24.0-44.0); MCH 32.4 pg (26.0-34.0); MCHC 33.2 g/dL (28.0-37.0); MCV 97.5 fL (80.0-100.0); MONOCYTES 9.9 % (1.0-8.0); POLYS 63.4 % (36.0-66.0); RBC 4.36 mil/uL (4.20-5.00); WBC 14.2 thou/uL (4.0-11.0)
[2021-06-06 08:12] LABS: ALBUMIN 2.9 g/dL (3.4-5.0); CALCIUM 8.8 mg/dL (8.5-10.1); CREATININE 0.7 mg/dL (0.6-1.0); MAGNESIUM 1.8 mg/dL (1.8-2.4); POTASSIUM 4.1 mmol/L (3.5-5.1); TOTAL BILIRUBIN 0.6 mg/dL (0.2-1.0); TOTAL PROTEIN 6.7 g/dL (6.4-8.2)
[2021-06-06 08:17] LABS: PLATELET COUNT 229 thou/uL (150-400); PLATELET ESTIMATE NORMAL
[2021-06-06 19:34] VITALS: BP 108/58
[2021-06-07 05:17] VITALS: BP 135/82
[2021-06-07 07:00] VITALS: BP 104/70
--- NOTE | 2021-06-07 08:08 | NUR ---
ASSUMED CARE AT 1900, PT LAYING COMFRTABLY IN BED, REPORTED LOWER BACK PAIN, ATTRIBUTED BY MOVEMENT/ACTIVITY, ENCOURAGED TO LAY ON THE SIDE WITH FREQUENT REPOSITIONING, COMPLIANT TO TX, NO ADVERSE REACTION NOTED, PRN MEDICATION ADMINISTERED SCHEDULED, EFFECTIVE, TOILETED ON THE BEDSIDE COMMODE NEEDED, SBA WITH FOLLOWED PROTOCOL, CALL LIGHT AND PERSONAL BELONGINGS WITHIN REACH WILL CONTINUE TO MONITOR.
--- NOTE | 2021-06-07 11:36 | NUR ---
ASSUMED PT CARE THIS AM. PT A&OX4, ABLE TO MAKE NEEDS KNOWN. PATIENT REPORTS PAIN, MEDICATED PER EMAR. IV REMAINS SALINE LOCKED. PATIENT IS ON 2 LITERS OF OXYGEN VIA NC. PATIENT AMBULATORY WITH ASSIST TO THE BEDSIDE COMMODE. FALL PRECAUTIONS ARE IN PLACE, CALL LIGHT WITHIN REACH.
--- NOTE | 2021-06-07 14:57 | NUR ---
Maxim visited with paige wilkinson her daughter at bedside, agreed with home health. She will be staying with her daughter at [address] [place], [address]. referral to be sent to [facility] per patient request. Paige voiced that pain is getting better but think sit in recliner for to long per paige.
[2021-06-07 15:01] VITALS: BP 135/82
== END 2021-06-07 15:02 | disposition home health service (06) | DRG 460 ==
LOC: TBA 06:27 → 4S 06:27 → PRE 11:01 → 4S 13:50 → PRE 15:12 → 4S 06-07 15:02
PROVIDERS: Nurse Practitioner; ADMIT Specialist; ATTEND Specialist
DX: M48.061 Spinal stenosis, lumbar region without neurogenic claudication (principal); Z68.41 Body mass index [BMI] 40.0-44.9, adult; M43.16 Spondylolisthesis, lumbar region; K59.00 Constipation, unspecified; I10 Essential (primary) hypertension; J44.9 Chronic obstructive pulmonary disease, unspecified; E78.5 Hyperlipidemia, unspecified; G43.909 Migraine, unspecified, not intractable, without status migrainosus; F32.9 Major depressive disorder, single episode, unspecified; F41.9 Anxiety disorder, unspecified; Z60.2 Problems related to living alone; M54.16 Radiculopathy, lumbar region; E53.8 Deficiency of other specified B group vitamins; E66.9 Obesity, unspecified; G89.29 Other chronic pain; M54.9 Dorsalgia, unspecified; Z85.41 Personal history of malignant neoplasm of cervix uteri; Z71.6 Tobacco abuse counseling; Z71.51 Drug abuse counseling and surveillance of drug abuser; Z79.899 Other long term (current) drug therapy
CPT/HCPCS: 10102; 50010; 50101; 50331; 50402; 50850; 50923; 51878; 52258; 56525; 56528; 56532; 57103; 58457; 58543; 58545; 58546; 58553; 58556; 58567; 58569; 58745; 58759; 58784; 62110; 62900; 70005

== ENCOUNTER → 2021-08-06 | Outpatient (CLI) | payer OTHER ==
[~2021-08-06] MED LIST changes: +BACLOFEN 10MG T10 MG PO; +COLACE100 MG PO; +FOLIC ACID1 MG PO; +MIRALAX119 GM PO; +MIRALAX17 GM PO; +VITAMIN B-121000 MC2 SUBLING
== END ==
LOC: RAD 10:34
PROVIDERS: ATTEND Physician Assistant
DX: M48.061 Spinal stenosis, lumbar region without neurogenic claudication (principal); M25.78 Osteophyte, vertebrae; Z98.890 Other specified postprocedural states